=== PATIENT | male | born 1965 | race Caucasian/White ===

== ENCOUNTER 2019-10-03 12:33 | Day surgery (SDC) | payer BC ==
[~2019-10-03] VITALS: Ht 180.3 cm; Wt 86.8 kg
[~2019-10-03 12:33] MED LIST: LOSARTAN POTAS100 M1 PO; Lovastatin20 MG PO; Norflex100 MG PO; OMEP20ER PO; Revatio20 MG PO
== END 2019-10-03 14:17 | disposition home or self-care (01) ==
LOC: ORSCSDS 12:33
PROVIDERS: Internal Medicine Gastroenterology
PROC: 0DB58ZX Excision of Esophagus, Via Natural or Artificial Opening Endoscopic, Diagnostic (ICD-10-PCS; principal; 2019-10-03 13:45)
PROC: 0DB68ZX Excision of Stomach, Via Natural or Artificial Opening Endoscopic, Diagnostic (ICD-10-PCS; principal; 2019-10-03 13:45)
DX: K21.9 Gastro-esophageal reflux disease without esophagitis (principal); I10 Essential (primary) hypertension; F17.220 Nicotine dependence, chewing tobacco, uncomplicated; Z79.899 Other long term (current) drug therapy
CPT/HCPCS: 88305; 88342; J2704; J7120

== ENCOUNTER 2021-12-24 07:08 | Day surgery (SDC) | payer BC ==
[~2021-12-24] VITALS: Ht 182.9 cm; Wt 89.9 kg
== END 2021-12-24 10:26 | disposition home or self-care (01) ==
LOC: ORSCSDS 07:08
PROVIDERS: Orthopaedic Surgery
PROC: 0MBP0ZZ Excision of Left Knee Bursa and Ligament, Open Approach (ICD-10-PCS; principal; 2021-12-24 08:15)
DX: M70.52 Other bursitis of knee, left knee (principal); I10 Essential (primary) hypertension; E78.5 Hyperlipidemia, unspecified; K21.9 Gastro-esophageal reflux disease without esophagitis; Z79.899 Other long term (current) drug therapy
CPT/HCPCS: J0690; J1100; J1885; J2250; J2370; J2405; J2704; J2795; J3010; J7120